=== PATIENT | female | born 1990 | race Caucasian/White ===

== ENCOUNTER 2016-12-01 19:05 | Emergency (ER) | payer OTHER ==
[~2016-12-01] VITALS: Ht 154.9 cm; Wt 103.0 kg
[~2016-12-01 19:05] MED LIST: ADVIL
[2016-12-01 19:11] VITALS: Ht 154.9 cm; Wt 103.0 kg
[2016-12-01] MEDS ORDERED: LIDOCAINE/MYLANTA 40 ML BTL PO ONE (20:00)
[2016-12-01] MEDS ORDERED: FAMOTIDINE 20 MG TAB PO ONE (20:00)
[2016-12-01 20:23] LABS: BASOPHILS % 0.5 % (0.0-2.0); EOSINOPHILS # 0.3 10^3/ul (0.0-0.5); EOSINOPHILS % 3.7 % (0.0-7.0); HEMATOCRIT 35.4 % (37.0-47.0); HEMOGLOBIN 11.2 g/dl (12.0-16.0); LYMPHOCYTES # 3.2 10^3/ul (0.8-2.9); LYMPHOCYTES % 37.1 % (15.0-51.0); MEAN CORPUSCULAR HEMOGLOBIN 28.7 pg (29.0-33.0); MEAN CORPUSCULAR HGB CONC 31.6 g/dl (32.0-37.0); MEAN CORPUSCULAR VOLUME 90.8 fl (82.0-101.0); MONOCYTE # 0.5 10^3/ul (0.3-0.9); MONOCYTES % 6.2 % (0.0-11.0); NEUTROPHIL # 4.6 10^3/ul (1.6-7.5); NEUTROPHILS % 52.2 % (39.0-77.0); PLATELET COUNT 289 10^3/UL (140-415); RED CELL DISTRIBUTION WIDTH 14.1 % (11.5-14.5); WHITE BLOOD COUNT 8.7 10^3/ul (4.8-10.8)
[2016-12-01 20:34] LABS: ADD UMIC YES; UR AMORPHOUS CRYSTAL FEW /HPF (NONE SEEN); UR ASCORBIC ACID NEGATIVE (NEGATIVE); UR BACTERIA FEW /HPF (NONE SEEN); UR BILIRUBIN (Dip) NEGATIVE (NEGATIVE); UR BLOOD (Dip) NEGATIVE (NEGATIVE); UR CLARITY SLIGHTLY CLOUDY (CLEAR); UR COLOR YELLOW (YELLOW); UR GLUCOSE (Dip) NEGATIVE (NEGATIVE); UR KETONES (Dip) NEGATIVE (NEGATIVE); UR LEUKOCYTE ESTERASE (Dip) 2+ Leu/ul (NEGATIVE); UR MUCUS FEW /HPF (NONE SEEN); UR NITRITE (Dip) NEGATIVE (NEGATIVE); UR RBC 2 /HPF (0-5); UR SPECIFIC GRAVITY (Dip) 1.025 (1.003-1.030); UR SQUAMOUS EPITHELIAL CELL MODERATE /HPF (FEW); UR TOTAL PROTEIN (Dip) NEGATIVE (NEGATIVE); UR UROBILINOGEN (Dip) NEGATIVE (NEGATIVE)
[2016-12-01 20:43] LABS: ANION GAP 11 (8-16); BLOOD UREA NITROGEN 14 mg/dl (7-20); CALCIUM 9.3 mg/dl (8.4-10.2); CARBON DIOXIDE 27 mmol/L (21-31); CHLORIDE 108 mmol/L (97-110); CREATININE 0.88 mg/dl (0.44-1.00); GLUCOSE 90 mg/dl (70-220); POTASSIUM 3.8 mmol/L (3.5-5.1); SODIUM 142 mmol/L (135-144)
[2016-12-01 21:01] LABS: TROPONIN-I < 0.012 ng/ml (0.00-0.12)
--- NOTE | 2016-12-01 21:10 | ERD ---
ER Documentation Chief Complaint Date/Time DATE: 12/01/16 TIME: 21:04 Chief Complaint chest pain/numbness radiating to left arm x 2 months HPI This is a 26-year-old female presenting to the ER for chest wall pain and numbness that radiates to left upper extremity for the past 1/2-2 months. Patient states she was seen at an outside facility in which a chest x-ray was done that showed "chest wall inflammation." Patient states she was given pain medicine and was told to follow-up with her primary care provider. Patient states she continues to have chest wall pain that radiates to left upper extremity. Patient has intermittent numbness and tingling to left arm. No weakness. No fevers or chills. No recent injury or trauma to area. No cough, difficulty breathing or shortness of breath. Patient has history of acid reflux. Patient does not take any medication at home for this. ROS All systems reviewed and are negative except as per history of present illness. Medications Home Meds Active Scripts Ibuprofen* (Motrin*) 600 Mg Tab, 600 MG PO Q6, #30 TAB Prov:LEONCIO MENCHACA NP 12/01/16 Ciprofloxacin Hcl* (Ciprofloxacin Hcl*) 500 Mg Tablet, 500 MG PO BID for 3 Days , TAB Prov:LEONCIO MENCHACA NP 12/01/16 Reported Medications [Advil] No Conflict Check 12/04/12 Allergies Allergies: Coded Allergies: No Known Allergy (Unverified , 12/01/16) PMhx/Soc History of Surgery: No Anesthesia Reaction: No Hx Neurological Disorder: No Hx Respiratory Disorders: No Hx Cardiac Disorders: No Hx Psychiatric Problems: No Hx Miscellaneous Medical Probl: No Hx Alcohol Use: Yes (OCCASSIONAL) Hx Substance Use: No Hx Tobacco Use: Yes Smoking Status: Smoker,current status unk Physical Exam Vitals Vital Signs Date Time Temp Pulse Resp B/P Pulse Ox O2 Delivery O2 Flow Rate FiO2 12/01/16 22:12 98.8 72 20 100 Room Air 12/01/16 19:11 98.2 92 20 128/67 98 Physical Exam Const: No acute distress, alert Head: Atraumatic Eyes: Normal Conjunctiva ENT: Normal External Ears, Nose and Mouth. Neck: Full range of motion..~ No meningismus. Resp: Clear to auscultation bilaterally. No wheezing, rhonchi or crackles. No stridor or labored breathing. No intercostal retractions. Patient is talking in complete sentences. Cardio: Regular rate and rhythm, no murmurs Abd: Soft, non tender, non distended. Normal bowel sounds Skin: No petechiae or rashes Back: No midline or flank tenderness Ext: No cyanosis, or edema Neur: Awake and alert Psych: Normal Mood and Affect Result Diagram: 12/01/16200412/01/162004 Results 24 hrs Laboratory Tests Test 12/01/16 19:28 12/01/16 20:05 Urine Color YELLOW Urine Clarity SLIGHTLY CLOUDY Urine pH 5.0 Urine Specific [place] 1.025 Urine Ketones NEGATIVEmg/dL Urine Nitrite NEGATIVEmg/dL Urine Bilirubin NEGATIVEmg/dL Urine Urobilinogen NEGATIVEmg/dL Urine Leukocyte Esterase 2+Dawn/ul Urine Microscopic RBC 2/HPF Urine Microscopic WBC 7/HPF Urine Squamous Epithelial Cells MODERATE/HPF Urine Amorphous Crystals FEW/HPF Urine Bacteria FEW/HPF Urine Mucus FEW/HPF Urine Hemoglobin NEGATIVEmg/dL Urine Glucose NEGATIVEmg/dL Urine Total Protein NEGATIVEmg/dl White Blood Count 8.710^3/ul Red Blood Count 3.9010^6/ul Hemoglobin 11.2g/dl Hematocrit 35.4% Mean Corpuscular Volume 90.8fl Mean Corpuscular Hemoglobin 28.7pg Mean Corpuscular Hemoglobin Concent 31.6g/dl Red Cell Distribution Width 14.1% Platelet Count 76907^3/UL Mean Platelet Volume 10.0fl Neutrophils % 52.2% Lymphocytes % 37.1% Monocytes % 6.2% Eosinophils % 3.7% Basophils % 0.5% Nucleated Red Blood Cells % 0.0/100WBC Neutrophils # 4.610^3/ul Lymphocytes # 3.210^3/ul Monocytes # 0.510^3/ul Eosinophils # 0.310^3/ul Basophils # 0.010^3/ul Nucleated Red Blood Cells # 0.010^3/ul Sodium Level 142mmol/L Potassium Level 3.8mmol/L Chloride Level 108mmol/L Carbon Dioxide Level 27mmol/L Anion Gap 11 Blood Urea Nitrogen 14mg/dl Creatinine 0.88mg/dl Glucose Level 90mg/dl Calcium Level 9.3mg/dl Troponin I < 0.012ng/ml Current Medications Medications (Trade) Dose Ordered Sig/Asuncion Route PRN Reason Start Time Stop Time Status Last Admin Dose Admin Famotidine (Pepcid) 20 mg ONCE ONCE PO 12/01/16 20:00 12/01/16 20:01 DC 12/01/16 20:17 Miscellaneous Medication (Gi Cocktail (2)) 40 ml ONCE ONCE PO 12/01/16 20:00 12/01/16 20:01 DC 12/01/16 20:17 Procedures/MDM [place] [id number] Radiology Main Line: [phone] DIAGNOSTIC IMAGING REPORT Patient: JANETTE HAMILTON : 1990 Age: 26 Sex: F MR #: [id number] DOS: 12/01/161953 Ordering MD: LEONCIO TABOR NP Location: [facility] Room/Bed: PROCEDURE: XR Chest. CLINICAL INDICATION: Chest pain. TECHNIQUE: Portable AP semi - erect view of the chest was obtained. COMPARISON: 02/14/2013 FINDINGS: The cardiomediastinal silhouette is within normal limits. The lungs are clear. There is no evidence for pleural effusion, pneumothorax or pulmonary vascular congestion. The osseous structures are intact with no evidence for acute abnormality. RPTAT:HJJR IMPRESSION: No evidence for acute intrathoracic pathology. EKG: As interpreted by myself and Dr. Matthew Rate/Rhythm: Normal sinus rhythm with heart rate 83 bpm QRS, ST, T-waves: No changes consistent w/ acute ischemia Impression: No evidence of ischemia or arrhythmia MDM: This is a 26-year-old female presenting to emergency department for intermittent chest wall pain with numbness and tingling to left upper extremity for the past 2 months. Patient also has an history of acid reflux and states she does not take any medications for this. Patient was seen in outside facility and a chest x-ray was done that showed "chest wall inflammation." Patient states she was sent home with pain medicine and was told to follow-up with primary care provider. Patient is afebrile and vital signs are stable. CBC shows no infection and Hgb 11.2. BMP shows no significant electrolyte imbalance. Troponin is <0.012. Urine dip shows 2+ leukocyte Estrace and 7 WBC. Chest x-ray reviewed by radiologist as no evidence for acute intrathoracic pathology. Patient given Pepcid and GI cocktail p.o. while in the ED. Upon reassessment, patient states pain has improved. Differential diagnosis includes but not limited to pneumonia, bronchitis, pleurisy, costochondritis, gastroesophageal reflux,musculoskeletal chest pain and esophageal spasm. Low suspicion for acute coronary syndrome, pulmonary embolism, pneumothorax, aortic dissection and myocardial infarction. Patient is appropriate for outpatient management and will be discharged as stable. She will be given prescription for Cipro and ibuprofen. Instructed patient to follow up with primary care provider in the next 24-48 hours. Return to ED for worsening pain, abdominal pain, vomiting, diarrhea, high fever or any new or worsening symptoms. Patient verbalizes understanding. All questions answered at discharge. Will be discharged in compliance with [facility] treat and release policy. Disclaimer: Inadvertent spelling and grammatical errors are likely due to EHR/ dictation software use and do not reflect on the overall quality of patient care. Also, please note that the electronic time recorded on this note does not necessarily reflect the actual time of the patient encounter. Departure Diagnosis: Primary Impression: UTI (urinary tract infection) Additional Impression: Chest wall pain Condition: Stable LEONCIO MENCHACA NP Dec 01, 2016 21:10
--- NOTE | 2016-12-01 21:42 | RADRPT ---
PROCEDURE: XR Chest. CLINICAL INDICATION: Chest pain. TECHNIQUE: Portable AP semi - erect view of the chest was obtained. COMPARISON: 02/14/2013 FINDINGS: The cardiomediastinal silhouette is within normal limits. The lungs are clear. There is no evidenc e for pleural effusion, pneumothorax or pulmonary vascular congestion. The osseous structures are i ntact with no evidence for acute abnormality. RPTAT:HJJR IMPRESSION: No evidence for acute intrathoracic pathology. Physician Rosalia Date Time Electronically viewed and signed by Physician Rosalia on 12/01/2016 21:41 /
[2016-12-01] MEDS ORDERED: CIPR500T4 PO (21:49)
[2016-12-01] MEDS ORDERED: IBUP-1542 PO (21:49)
[2016-12-01 22:12] VITALS: PULSE 72; RESP 20; TEMP 98.8
== END 2016-12-01 22:10 | disposition home or self-care (01) ==
LOC: FTE 19:05
DX: N39.0 Urinary tract infection, site not specified (principal); F17.210 Nicotine dependence, cigarettes, uncomplicated
CPT/HCPCS: 36415; 71010; 80048; 81001; 84484; 85025; 93005; Z7502; Z7610

== ENCOUNTER 2017-02-26 10:51 | Emergency (ER) | END 2017-02-26 11:40 | disposition home or self-care (01) ==

== ENCOUNTER 2017-02-26 19:30 | Emergency (ER) | END 2017-02-26 20:15 | disposition left against medical advice (07) ==